=== PATIENT | male | born 1980 | race Caucasian/White ===

== ENCOUNTER 2017-11-27 08:55 | Outpatient (CLI) | payer OTHER ==
[2017-11-27 10:40] LABS: ALBUMIN 4.7 g/dL (3.2-5.5); ALBUMIN/GLOBULIN RATIO 1.7 (1.0-2.2); ALKALINE PHOSPHATASE 71 IU/L (42-121); ALT ALANINE AMINOTRANSFERASE 46 IU/L (10-60); AST ASPARTATE AMINOTRANSFERASE 29 IU/L (10-42); BILIRUBIN,TOTAL 0.6 mg/dL (0.2-1.0); BUN - BLOOD UREA NITROGEN 11 mg/dL (6-20); CALCIUM 9.6 mg/dL (8.5-10.3); CARBON DIOXIDE - CO2 29 mmol/L (21-32); CHLORIDE 103 mmol/L (101-111); CHOL/HDL RATIO 4.1 (<5.0); CHOLESTEROL 238 mg/dL; CREATININE 1.1 mg/dL (0.6-1.2); GFR - MDRD 75 (>89); GLUCOSE 100 mg/dL (70-100); HDL CHOLESTEROL 58 mg/dL; LDL CHOLESTEROL,CALCULATED 139 mg/dL; LDL/HDL RATIO 2.4 (<3.6); SODIUM 139 mmol/L (135-145); TOTAL PROTEIN 7.5 g/dL (6.7-8.2); VLDL CHOLESTEROL 41 mg/dL
== END 2017-11-27 08:56 | disposition home or self-care (01) ==
LOC: LAB.F 08:55
PROVIDERS: ATTEND Internal Medicine
DX: Z00.00 Encounter for general adult medical examination without abnormal findings (principal)
CPT/HCPCS: 36415; 80053; 80061; 83721; 84443

== ENCOUNTER 2018-01-18 11:23 | Outpatient (CLI) | payer OTHER | END 2018-01-18 11:24 | disposition home or self-care (01) | LOC: SC 11:23 | PROVIDERS: ATTEND Internal Medicine Pulmonary Disease | DX: G47.30 Sleep apnea, unspecified (principal); G47.10 Hypersomnia, unspecified; R06.83 Snoring; R51 Headache; G47.8 Other sleep disorders; E66.01 Morbid (severe) obesity due to excess calories; Z68.41 Body mass index [BMI] 40.0-44.9, adult | CPT/HCPCS: 99203; 99212 ==

== ENCOUNTER 2018-03-02 20:27 | Outpatient (CLI) | payer OTHER | END 2018-03-02 20:28 | disposition home or self-care (01) | LOC: SC 20:27 | PROVIDERS: ATTEND Internal Medicine Pulmonary Disease | DX: G47.33 Obstructive sleep apnea (adult) (pediatric) (principal); G47.61 Periodic limb movement disorder | CPT/HCPCS: 95810 ==

== ENCOUNTER 2018-04-12 10:49 | Outpatient (CLI) | payer OTHER | END 2018-04-12 10:50 | disposition home or self-care (01) | LOC: SC 10:49 | PROVIDERS: ATTEND Internal Medicine Pulmonary Disease | DX: G47.33 Obstructive sleep apnea (adult) (pediatric) (principal) | CPT/HCPCS: 99212; 99213 ==

== ENCOUNTER 2018-06-08 09:12 | Outpatient (CLI) | payer OTHER | END 2018-06-08 09:13 | disposition home or self-care (01) | LOC: SC 09:12 | PROVIDERS: ATTEND Internal Medicine Pulmonary Disease | DX: G47.33 Obstructive sleep apnea (adult) (pediatric) (principal) | CPT/HCPCS: 99212; 99213 ==